=== PATIENT | female | born 1980 | race Caucasian/White ===

== ENCOUNTER 2017-02-18 16:16 | Emergency (ER) | payer OTHER ==
[2017-02-18 16:21] VITALS: BP 149/61; PULSE 102; TEMP 99.1; BMI 36.6
[2017-02-18] MEDS ORDERED: IBUPROFEN 600 MG TABLET (FP) PO ONE ×2 (17:31→17:35)
--- NOTE | 2017-02-18 17:41 | PDOC ---
History of Present Illness - General Chief Complaint: Ear Problem Stated Complaint: EAR PROBLEM Time Seen by Provider: 02/18/17 17:10 History Source: Patient Exam Limitations: No Limitations - History of Present Illness Initial Comments: 02/18/17 17:43 And sent pain, swelling, and exudate from left ear canal, and some mild pain to the right ear. States daughter is teething and also has an ear infection. 02/18/17 22:37 Timing/Duration: unsure Severity: mild Associated Symptoms: reports: fever/chills, malaise Past History - Travel Traveled outside of the country in the last 30 days: No Close contact w/someone who was outside of country & ill: No - Past Medical History Allergies/Adverse Reactions: Allergies Allergy/AdvReac Type Severity Reaction Status Date / Time aspirin Allergy Verified 02/18/17 16:21 Penicillins Allergy Verified 02/18/17 16:21 Home Medications: Ambulatory Orders Acetic Acid Hc [Vosol-Hc Ear Drops -] 3 drop Q6H #1 bottle 02/18/17 Asthma: Yes Cardiac Disorders: (CARDIOMYOPATHY) - Psycho/Social/Smoking Cessation Hx Suicidal Ideation: No Smoking History: Current every day smoker Number of Cigarettes Smoked Daily: 1 Information on smoking cessation initiated: No Hx Alcohol Use: No Drug/Substance Use Hx: No Substance Use Type: None Review of Systems - Review of Systems Able to Perform ROS?: Yes Is the patient limited Uzbek proficient: Yes Constitutional: Yes: Symptoms Reported, See HPI, Chills, Fever, Malaise HEENTM: Yes: Symptoms Reported, Ear Discharge (left ear) Respiratory: No: Symptoms reported Integumentary: No: Symptoms Reported Neurological: Yes: Symptoms reported All Other Systems: Reviewed and Negative *Physical Exam - Vital Signs Last Vital Signs Temp Pulse Resp BP Pulse Ox 99.1 F 102 H 18 149/61 98 02/18/17 16:19 02/18/17 16:19 02/18/17 16:19 02/18/17 16:19 02/18/17 16:19 - Physical Exam General Appearance: Yes: Nourished, Appropriately Dressed, Apparent Distress, Mild Distress HEENT: positive: DAVID, Pharynx Normal, Rhinorrhea, Sinus Tenderness. negative: Normal ENT Inspection, TMs Normal (erythematous canals, with white) Neck: positive: Supple, Lymphadenopathy (L). 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 We'll treat with acetic acid and hydrocortisone suspension *DC/Admit/Observation/Transfer Diagnosis at time of Disposition: Otitis externa Qualifiers: Otitis externa type: unspecified type Chronicity: acute Laterality: bilateral Qualified Code(s): H60.503 - Unspecified acute noninfective otitis externa, bilateral - Discharge Dispostion Disposition: HOME Condition at time of disposition: Stable Admit: No - Prescriptions Prescriptions: Acetic Acid Hc [Vosol-Hc Ear Drops -] 3 drop Q6H #1 bottle - Patient Instructions Printed Discharge Instructions: DI for Otitis Externa Additional Instructions: Rest, lots of fluids; water, teas, soups Hot wet soaks to ear/hot packs may help relieve some pain May use [id number] anesthetic drops to ears to help relieve some pain Avoid getting water in ear, may use alcohol drops to help dry up any water retained in ears Severe using earplugs when swimming to avoid any water retention Continue ibuprofen or Tylenol for pain and fevers VOSOL otic solution 3-5 drops 3 times a day for 5 days followup with private physician / ENT doctor in 2-3 days Return to emergency department or see private physician immediately for swelling , redness, from ears, or fevers, - Post Discharge Activity Work/School Note: Back to Work
== END 2017-02-18 17:45 | disposition home or self-care (01) ==
LOC: JERFT 16:16
DX: H60.503 Unspecified acute noninfective otitis externa, bilateral (principal)
CPT/HCPCS: 99281-25

== ENCOUNTER 2018-04-22 17:19 | Observation (INO) | payer OTHER ==
[2018-04-22 17:28] VITALS: BMI 32.5
--- NOTE | 2018-04-22 17:29 | PDOC ---
Rapid Medical Evaluation Chief Complaint: Edema Time Seen by Provider: 04/22/18 17:27 Medical Evaluation: Allergies Allergy/AdvReac Type Severity Reaction Status Date / Time aspirin Allergy Verified 02/18/17 16:21 Penicillins Allergy Verified 02/18/17 16:21 04/22/18 17:27 Pt c/o: left edema secondary dental abscess, drained abscess yesterday at [facility] dental clinic , on abx Pt on exam: + periorbital edema, no fever, hypertensive Pt ordered for labs, iv, facial ct Discharge Disposition - Diagnosis Dental abscess - Referrals - Patient Instructions - Post Discharge Activity
--- NOTE | 2018-04-22 17:50 | PDOC ---
History of Present Illness - History of Present Illness Initial Comments: Patient is a 38 year old female with PMHx of tubal ligation, endometriosis, spinal fusion, who presents with facial swelling and maxillary abscess s/p tooth removal. Patient states that she had one of her upper left molars removed on Friday in [place]. She developed an abscess and had it drained at [facility] yesterday. She was put on Clindamycin and given IV antibiotics. The facial swelling became progressively worse today. She came here because she was in the area. Past surgical Hx:spinal fusion Allergies: penicillin (anaphylaxis - throat swelling) , aspirin <Smiley Coates - Last Filed: 04/22/18 21:39> <Jung Orosco - Last Filed: 04/22/18 21:58> - General Chief Complaint: Edema Stated Complaint: SWOLLEN FACE, infection Time Seen by Provider: 04/22/18 17:27 Past History <Smiley Coates - Last Filed: 04/22/18 21:39> - Past Medical History Asthma: Yes Cardiac Disorders: (CARDIOMYOPATHY) COPD: No - Suicide/Smoking/Psychosocial Hx Smoking History: Never smoked Have you smoked in the past 12 months: No Number of Cigarettes Smoked Daily: 1 Information on smoking cessation initiated: No Hx Alcohol Use: No Drug/Substance Use Hx: No Substance Use Type: None <Jung Orosco - Last Filed: 04/22/18 21:58> - Past Medical History Allergies/Adverse Reactions: Allergies Allergy/AdvReac Type Severity Reaction Status Date / Time aspirin Allergy Verified 04/22/18 17:28 Penicillins Allergy Verified 04/22/18 17:28 Home Medications: Ambulatory Orders Clindamycin [Cleocin -] 300 mg PO TID 04/22/18 Review of Systems - Review of Systems Comments:: CONSTITUTIONAL: No fever, no chills, no fatigue EYES: No visual changes ENT: upper left maxillary abscess and pain. No ear pain, no sore throat CARDIOVASCULAR: No chest pain, no palpitations RESPIRATORY: No cough, no SOB GI: No abdominal pain, no nausea, no vomiting, no constipation, no diarrhea GENITOURINARY: No dysuria, no frequency, no hematuria MUSKULOSKELETAL: No back pain, no joint pain. SKIN: left-sided facial edema NEURO: No headache <Smiley Coates - Last Filed: 04/22/18 21:39> *Physical Exam - Vital Signs Last Vital Signs Temp Pulse Resp BP Pulse Ox 99.6 F 97 H 19 168/102 H 100 04/22/18 17:26 04/22/18 17:26 04/22/18 17:26 04/22/18 17:26 04/22/18 17:26 - Physical Exam Comments: CONSTITUTIONAL: Well-appearing; well-nourished. NECK: Supple; nontender; no cervical lymphadenopathy CARD: Normal S1, S2; no murmurs, rubs, or gallops RESP: Normal chest excursion with respiration; breath sounds clear and equal bilaterally; no wheezes, rhonchi, or rales ABD: Soft, non-distended; non-tender; no palpable organomegaly, no palpable hernias EXT: Normal ROM in all four extremities; non-tender to palpation; distal pulses intact SKIN: See note for face NEURO: No focal neurological deficiencies. Please refer to Dr's exam for face. <Smiley Coates - Last Filed: 04/22/18 21:39> - Vital Signs Last Vital Signs Temp Pulse Resp BP Pulse Ox 99.6 F 97 H 19 168/102 H 100 04/22/18 17:26 04/22/18 17:26 04/22/18 17:26 04/22/18 17:26 04/22/18 17:26 - Physical Exam Comments: 04/22/18 21:42 EXAMINATION EYES: PERRL; EOM intact; + left conjunctival injection; visual acuity is intact bilaterally; + significant periorbital edema on the left; ENMT: + Significant soft tissue swelling extending from the parotid gland up to the left temporal area without subcutaneous emphysema or bony tenderness; extraction of tooth #12 is noted without evidence of gingival induration or fluctuance; there is no trismus <Jung Orosco - Last Filed: 04/22/18 21:58> Heart Score/ECG Review - ECG Intrepretation Comment:: EKG interpretation: Taken at 22-Apr-2018 17:47:04 Vent. rate: 93 bpm Normal sinus rhythm Possible left atrial enlargement Nonspecific ST abnormality <Smiley Coates - Last Filed: 04/22/18 21:39> ED Treatment Course - LABORATORY CBC & Chemistry Diagram: 04/22/18 17:55 04/22/18 17:55 <Smiley Coates - Last Filed: 04/22/18 21:39> - LABORATORY CBC & Chemistry Diagram: 04/22/18 17:55 04/22/18 17:55 <Jung Orosco - Last Filed: 04/22/18 21:58> Medical Decision Making - Medical Decision Making 04/22/18 21:46 Patient is a 38-year-old female status post tooth extraction #12 due to an apical abscess who presents with an extensive soft tissue swelling of the face, left maxillary sinus and left periorbital and infraorbital structures. No drainable collection is identified on ct of face. There is no limitation in the extraocular movements. Will admit patients for IV antibiotics and evaluation for possible orbital involvement. <Jung Orosco - Last Filed: 04/22/18 21:58> *DC/Admit/Observation/Transfer - Attestations Scribe Attestion: 04/22/18 18:23 Documentation prepared by Smiley Coates, acting as medical office technology instructor for Jung Orosco MD. <Smiley Coates - Last Filed: 04/22/18 21:39> - Discharge Dispostion Decision to Admit order: Yes - Attestations Physician Attestion: 04/22/18 21:42 The documentation was prepared by the scribe under my direct supervision. I have reviewed the documentation which correctly represents the findings, medical decision-making and critical action taken by me. <Jung Orosco - Last Filed: 04/22/18 21:58> Diagnosis at time of Disposition: Facial cellulitis - Discharge Dispostion Condition at time of disposition: Fair
[2018-04-22] MEDS ORDERED: morphine SULFATE 4 MG/ML VIAL IVPUSH ONE (17:59)
[2018-04-22] MEDS ORDERED: CLINDAMYCIN 600MG PREMIX IVPB 600 MG/50 ML BAG IVPB ONE ×2 (18:21→18:23)
[2018-04-22] MEDS ORDERED: MORPHINE SULFATE 2 MG/ML VIAL ONE (18:23)
[2018-04-22 18:24] LABS: EOS % 0.9 % (0-4.5); HEMATOCRIT 38.8 % (32.4-45.2); HEMOGLOBIN 13.1 GM/dL (10.7-15.3); LYMPH % 24.5 % (8-40); MCHC 33.9 g/dl (32.0-36.0); MEAN CELL VOLUME 85.6 fl (80-96); MEAN PLT VOLUME 9.5 fl (7.5-11.1); MONO % 8.5 % (3.8-10.2); NEUT % 65.1 % (42.8-82.8); RBC 4.54 M/mm3 (3.60-5.2); RDW 17.2 % (11.6-15.6)
[2018-04-22 18:34] LABS: URINE APPEARANCE CLEAR; URINE BILIRUBIN NEGATIVE (<2.0 mg/dL); URINE COLOR LTYELLOW; URINE GLUCOSE (UA) NEGATIVE (NEGATIVE); URINE KETONE NEGATIVE (NEGATIVE); URINE LEUK ESTERASE NEGATIVE (NEGATIVE); URINE NITRITE NEGATIVE (NEGATIVE); URINE PROTEIN NEGATIVE (NEGATIVE); URINE UROBILINOGEN NEGATIVE mg/dL (0.2-1.0)
[2018-04-22 18:40] LABS: INR 1.23 (0.83-1.09); PROTHROMBIN TIME (PATIENT) 14.5 SEC (9.7-13.0)
[2018-04-22 19:13] LABS: PLATELET COUNT 299 K/MM3 (134-434); PLATELET ESTIMATE ADEQUATE
--- NOTE | 2018-04-22 22:32 | PN ---
Teaching Attending Note Name of Resident: Benita Cueavs ATTENDING PHYSICIAN STATEMENT I saw and evaluated the patient. I reviewed the resident's note and discussed the case with the resident. I agree with the resident's findings and plan as documented. SUBJECTIVE: Patient is a 38 year old woman with PMH of tubal ligation, penicillin allergy, endometriosis and spinal fusion who presents with facial swelling and maxillary abscess after tooth removal and abscess drainage. Patient states that she had one of her upper left molars removed on Friday in [place]. She developed an abscess and had it drained at [facility] yesterday. She was put on Clindamycin and given IV antibiotics. The facial swelling became progressively worse today. She came here because she was in the area. OBJECTIVE: Alert Vital Signs Period Temp Pulse Resp BP Sys/White Pulse Ox Last 24 Hr 99.6 F 97-104 18-19 138-168/86-102 100-100 HEENT: No Jaundice, periorbital left eye redness; no discharge, PERRLA, EOMI. Normocephalic, atraumatic. External ears are normal and hearing is grossly intact. No nasal discharge. Left facial edema; tender. No erythema in oral cavity and no obvious drainage from tooth extraction site. Neck: Supple, nontender. No palpable adenopathy or thyromegaly. No JVD Chest: Good effort. Clear to auscultation and percussion. Heart: Regular. No S3, rub or murmur Abdomen: Not distended, soft, nontender and no HSM. No rebound or guarding. Normoactive bowel sounds. Ext: Peripheral pulses intact. No leg edema. Skin: Warm and dry. No petechiae, rash or ecchymosis. Neuro: Alert. Oriented x3. CN 2-12 grossly intact. Sensation grossly intact in all four extremities and DTR are symmetric. Home Medications Medication Instructions Recorded Clindamycin [Cleocin -] 300 mg PO TID 04/22/18 Abnormal Lab Results 04/22/18 04/22/18 04/22/18 15:00 17:55 17:55 RDW 17.2 H PT with INR 14.50 H INR 1.23 H Ur Specific Marcus 1.009 L ASSESSMENT AND PLAN: 1. Periodontal abscess/cellulitis and left facial swelling - CT scan shows soft tissue edema with no obvious drainable fluid collection. Will treat with IV vancomycin, use warm compress for facial edema; consult ID, oral surgery and opthalmology. Monitor left periorbital erythema - no vision impairment at this time. 2. Obesity - Will provide patient all the necessary assistance, counseling and positive reinforcement to facilitate weight loss. Consult medical genetics director. 3. DVT prophylaxis - Lovenox 40 mg SQ q 24 hours. 4. Advance directives - Full code
[2018-04-22] MEDS ORDERED: VANCOMYCIN 1 GRAM (PRE-DOCKED) 1,000 MG/250 ML BAG IVPB ONE (23:44)
[2018-04-22] MEDS ORDERED: ACETAMINOPHEN 325 MG TABLET (FP) PO PRN (23:46)
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
[2018-04-23] MEDS ORDERED: VANCOMYCIN 1 GRAM (PRE-DOCKED) 1,000 MG/250 ML BAG IVPB ONE (00:17)
[2018-04-23 01:54] LABS: ALBUMIN 3.8 g/dl (3.4-5.0); ALK PHOS 98 U/L (45-117); ANION GAP 8 MMOL/L (8-16); BILIRUBIN,TOTAL 0.7 mg/dL (0.2-1); BLOOD UREA NITROGEN 8 mg/dL (7-18); CALCIUM 9.2 mg/dL (8.5-10.1); CHLORIDE 101 mmol/L (98-107); CO2 30 mmol/L (21-32); CREATININE 0.7 mg/dL (0.55-1.3); GLUCOSE,RANDOM 147 mg/dL (74-106); POTASSIUM 3.6 mmol/L (3.5-5.1); SGOT/AST 14 U/L (15-37); SGPT/ALT 18 U/L (13-61); SODIUM 139 mmol/L (136-145); TOT PROT 7.6 g/dl (6.4-8.2)
[2018-04-23 07:25] LABS: BASO % 0.7 % (0-2.0); EOS % 2.8 % (0-4.5); HEMATOCRIT 35.5 % (32.4-45.2); HEMOGLOBIN 11.7 GM/dL (10.7-15.3); LYMPH % 28.1 % (8-40); MCH 28.1 pg (25.7-33.7); MEAN PLT VOLUME 8.7 fl (7.5-11.1); MONO % 11.8 % (3.8-10.2); NEUT % 56.6 % (42.8-82.8); PLATELET COUNT 262 K/MM3 (134-434); RBC 4.17 M/mm3 (3.60-5.2); WHITE BLOOD COUNT 6.3 K/mm3 (4.0-10.0)
[2018-04-23 07:52] LABS: ALBUMIN 3.6 g/dl (3.4-5.0); ALK PHOS 92 U/L (45-117); ANION GAP 10 MMOL/L (8-16); BILIRUBIN,TOTAL 0.9 mg/dL (0.2-1); BLOOD UREA NITROGEN 8 mg/dL (7-18); CHLORIDE 102 mmol/L (98-107); CO2 27 mmol/L (21-32); CREATININE 0.5 mg/dL (0.55-1.3); GLUCOSE,RANDOM 88 mg/dL (74-106); POTASSIUM 3.8 mmol/L (3.5-5.1); SGOT/AST 11 U/L (15-37); SGPT/ALT 19 U/L (13-61); SODIUM 139 mmol/L (136-145)
[2018-04-23] MEDS ORDERED: CLINDAMYCIN 600MG PREMIX IVPB 600 MG/50 ML BAG IVPB SCH (10:00)
[2018-04-23] MEDS ORDERED: ENOXAPARIN NA (PORCINE) 40 MG/0.4 ML DISP.SYRIN SQ SCH (10:00)
--- NOTE | 2018-04-23 11:09 | EKG ---
Test Reason : Blood Pressure : / mmHG Vent. Rate : 093 BPM Atrial Rate : 093 BPM P-R Int : 128 ms QRS Dur : 080 ms QT Int : 322 ms P-R-T Axes : 060 014 -10 degrees QTc Int : 400 ms NORMAL SINUS RHYTHM POSSIBLE LEFT ATRIAL ENLARGEMENT NONSPECIFIC ST ABNORMALITY ABNORMAL ECG NO PREVIOUS ECGS AVAILABLE Confirmed by ABBI HUGHES MD ([id number]) on 04/23/2018 11:08:32 AM Referred By: Confirmed By:ABBI HUGHES MD
--- NOTE | 2018-04-23 14:03 | PN ---
Progress Note (short form) - Note Progress Note: ID Consult dictated Facial cellulitis secondary to dental abscess- improved Major PCN allergy OK for discharge on clindamycin 300mg po tid x 7d with probiotic Will follow up in office
--- NOTE | 2018-04-23 14:34 | CONS ---
INFECTIOUS DISEASE CONSULTATION DATE OF CONSULTATION: DATE OF DICTATION: 04/23/2018 The patient is a 38-year-old female who is evaluated for facial cellulitis. The patient reports a known history of dental abscess. She had developed worsening pain and swelling of her left cheek. She presented to her dentist on Friday, April 20, 2018, and an upper molar was extracted. She was told of a dental abscess which was not drained at that time. The patient developed worsening pain and swelling. She presented to [facility] on April 21, 2018, where a dental abscess was drained. Cultures were obtained and are pending. The Gram stain preliminarily shows gram-positive cocci in pairs and clusters and gram-negative bacilli. She presented to the hospital on April 22, 2018, with worsening pain and swelling of the left face. She was diagnosed with facial cellulitis. A CAT scan of the head and facial bones was performed and was negative for abscess. She was seen in consultation by Ophthalmology. No eye involvement was noted. Cultures were obtained. She was empirically treated with clindamycin. Patient reports marked improvement in her facial swelling on clindamycin. She has less pain, able to chew without pain. No breathing difficulties or change in her visual acuity. She is afebrile with a normal white blood cell count. PAST MEDICAL HISTORY: Positive for endometriosis. PAST SURGICAL HISTORY: Status post tubal ligation and spinal fusion. ALLERGIES: ASPIRIN and PENICILLIN. According to the chart, she has a history of anaphylaxis with PENICILLIN. Patient has no recall for this. She reports being told by her mother that she had a reaction to PENICILLIN as a child. MEDICATIONS: Include clindamycin and Tylenol. 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 She is a smoker. HIV status not known. SYSTEMS REVIEW: Neurologic: No loss of consciousness, seizure activity, focal weakness. Cardiac: Negative chest pain or palpitations. Respiratory: Negative cough or sputum production. Gastrointestinal: Negative vomiting or diarrhea. Genitourinary: Negative for urinary tract infection. LABORATORY DATA: White count 6.3, hematocrit 35.5, platelet count 262. Creatinine 0.5. Blood cultures are pending. PHYSICAL EXAMINATION: General: She is awake and alert. She is in no acute distress. Breathing is non-labored. Vital Signs: Temperature 98.2; blood pressure 136/86; pulse 88, regular; respirations 20 per minute. HEENT: Sclerae are anicteric. There is left facial edema, mostly over the left malar area and the left infraorbital area. There is no tenderness to palpation. No crepitus or fluctuance. Neck: Supple. No palpable adenopathy. Heart: Sounds S1, S2. Lungs: Clear. No rhonchi. No stridor or wheezing. Abdomen: Soft and nontender. Extremities: Negative for edema. IMPRESSION: 1. Facial cellulitis secondary to dental abscess, improved. 2. Status post drainage of dental abscess. 3. History of major PENICILLIN allergy. Patient's present condition compared to photos which the patient provided to me from earlier this week: There is marked improvement in the facial swelling. No abscess noted on CAT scan. Would continue clindamycin. May substitute clindamycin 300 mg p.o. 3 times a day for an additional 7 days with a probiotic. She will follow up with me in the office next week. I advised her to return to the emergency room should she develop any worsening swelling, erythema, or breathing difficulties. Thank you for the kind referral. CALLI MCGREGOR M.D. [id number]
[2018-04-23 15:10] VITALS: BP 136/91; PULSE 108; TEMP 98.5
--- NOTE | 2018-04-23 15:13 | DS ---
Physical Exam: SUBJECTIVE: Patient seen and examined. Pt. wants to go home, was refusing blood draws. Pt. denies fevers, diarrhea, runny nose, blurry vision. OBJECTIVE: Vital Signs Period Temp Pulse Resp BP Sys/White Pulse Ox Last 24 Hr 97.5 F-99.6 F 88-108 18-20 136-168/86-102 96-100 PHYSICAL EXAM GENERAL: The patient is awake, alert, and fully oriented, in no acute distress. EYES: PERRL, extraocular movements intact, sclera anicteric, swollen left face, mildly tendered to palpation around eye, conjunctiva clear. ENT: Ears normal, nares patent, , oropharynx clear without exudates and no erythema, scar from C-Spine present, moist mucous membranes. NECK: Trachea midline, full range of motion, supple. LUNGS: Breath sounds equal, clear to auscultation bilaterally, no wheezes, no crackles, no accessory muscle use. HEART: Tachycardic, regular rate and rhythm, S1, S2 without murmur ABDOMEN: Soft, nontender, nondistended, normoactive bowel sounds, no guarding, no rebound EXTREMITIES: 2+ dorsal pedal pulses, warm, well-perfused, moves all limbs spontaneously, no edema. NEUROLOGICAL: Cranial nerves II through XII grossly intact. Normal speech, gait not observed. PSYCH: Normal mood, normal affect. SKIN: Warm, dry, normal turgor, no rashes or lesions noted. LABS Laboratory Results - last 24 hr 04/22/18 04/22/18 04/22/18 15:00 17:55 17:55 WBC 10.0 RBC 4.54 Hgb 13.1 Hct 38.8 MCV 85.6 MCH 29.0 MCHC 33.9 RDW 17.2 H Plt Count 299 MPV 9.5 Absolute Neuts (auto) 6.5 Neutrophils % 65.1 Lymphocytes % 24.5 Monocytes % 8.5 Eosinophils % 0.9 Basophils % 1.0 Nucleated RBC % 0 Platelet Estimate Adequate Platelet Comment Giant platelets PT with INR 14.50 H INR 1.23 H Sodium Potassium Chloride Carbon Dioxide Anion Gap BUN Creatinine Creat Clearance w eGFR Random Glucose Lactic Acid Calcium Total Bilirubin AST ALT Alkaline Phosphatase Troponin I Total Protein Albumin Urine Color Ltyellow Urine Appearance Clear Urine pH 7.0 Ur Specific [place] 1.009 L Urine Protein Negative Urine Glucose (UA) Negative Urine Ketones Negative Urine Blood Negative Urine Nitrite Negative Urine Bilirubin Negative Urine Urobilinogen Negative Ur Leukocyte Esterase Negative Blood Type Antibody Screen 04/22/18 04/22/18 04/22/18 17:55 17:55 17:55 WBC RBC Hgb Hct MCV MCH MCHC RDW Plt Count MPV Absolute Neuts (auto) Neutrophils % Lymphocytes % Monocytes % Eosinophils % Basophils % Nucleated RBC % Platelet Estimate Platelet Comment PT with INR INR Sodium Cancelled Potassium Cancelled Chloride Cancelled Carbon Dioxide Cancelled Anion Gap Cancelled BUN Cancelled Creatinine Cancelled Creat Clearance w eGFR Cancelled Random Glucose Cancelled Lactic Acid 1.3 Calcium Cancelled Total Bilirubin Cancelled AST Cancelled ALT Cancelled Alkaline Phosphatase Cancelled Troponin I Total Protein Cancelled Albumin Cancelled Urine Color Urine Appearance Urine pH Ur Specific [place] Urine Protein Urine Glucose (UA) Urine Ketones Urine Blood Urine Nitrite Urine Bilirubin Urine Urobilinogen Ur Leukocyte Esterase Blood Type A POSITIVE Antibody Screen Negative 04/22/18 04/22/18 04/23/18 17:55 20:40 01:15 WBC RBC Hgb Hct MCV MCH MCHC RDW Plt Count MPV Absolute Neuts (auto) Neutrophils % Lymphocytes % Monocytes % Eosinophils % Basophils % Nucleated RBC % Platelet Estimate Platelet Comment PT with INR INR Sodium 139 Potassium 3.6 Chloride 101 Carbon Dioxide 30 Anion Gap 8 BUN 8 Creatinine 0.7 Creat Clearance w eGFR > 60 Random Glucose 147 H Lactic Acid 0.7 Calcium 9.2 Total Bilirubin 0.7 AST 14 L ALT 18 Alkaline Phosphatase 98 Troponin I Cancelled Total Protein 7.6 Albumin 3.8 Urine Color Urine Appearance Urine pH Ur Specific [place] Urine Protein Urine Glucose (UA) Urine Ketones Urine Blood Urine Nitrite Urine Bilirubin Urine Urobilinogen Ur Leukocyte Esterase Blood Type Antibody Screen 04/23/18 04/23/18 06:25 06:25 WBC 6.3 RBC 4.17 Hgb 11.7 Hct 35.5 MCV 85.0 MCH 28.1 MCHC 33.0 RDW 17.0 H Plt Count 262 MPV 8.7 Absolute Neuts (auto) 3.6 Neutrophils % 56.6 Lymphocytes % 28.1 Monocytes % 11.8 H Eosinophils % 2.8 D Basophils % 0.7 Nucleated RBC % 0 Platelet Estimate Platelet Comment PT with INR INR Sodium 139 Potassium 3.8 Chloride 102 Carbon Dioxide 27 Anion Gap 10 BUN 8 Creatinine 0.5 L Creat Clearance w eGFR > 60 Random Glucose 88 Lactic Acid Calcium 9.0 Total Bilirubin 0.9 AST 11 L ALT 19 Alkaline Phosphatase 92 Troponin I Total Protein 7.0 Albumin 3.6 Urine Color Urine Appearance Urine pH Ur Specific [place] Urine Protein Urine Glucose (UA) Urine Ketones Urine Blood Urine Nitrite Urine Bilirubin Urine Urobilinogen Ur Leukocyte Esterase Blood Type Antibody Screen HOSPITAL COURSE: Date of Admission:04/22/18 Date of Discharge: 04/23/18 Pt. admitted for facial swelling after having tooth removed. Pt. received 2 doses of IV Clindamycin and 1 dose of Vancomycin. Facial CT was negative for abscess, no observable drainable fluids, focal edema around left maxillary sinus , incidental small right maxillary sinus. ENT was called at [facility] for follow up on culture growths which were growing gram + cocci in pairs and clusters and gram negative bacilli. ID consult recommended seven day course of Clindamycin 300mg TID. Hospital course was discussed with and agreed upon with Pt. and medical staff. Minutes to complete discharge: 32 Discharge Summary Reason For Visit: CELLULITIS OF FACE Current Active Problems Facial cellulitis (Acute) Condition: Fair - Instructions Diet, Activity, Other Instructions: You came in with left-sided facial swelling. We are prescribing you Clindamycin 300mg THREE times a day ( Every 8 hours: 06: 00AM, 02:00PM, 10:00PM) Please take as prescribed. Please follow up with your primary care physician in 1 week. Please return to the ED if you are having fever, chills, discharge from the area , changes in vision, headache, numbness of the face, or increased pain or swelling of the face. Disposition: HOME - Home Medications Comprehensive Discharge Medication List: Ambulatory Orders Clindamycin [Cleocin -] 300 mg PO TID #21 capsule 04/23/18 This patient is new to me today: Yes Date on this admission: 04/22/18 Emergency Visit: Yes ED Registration Date: 04/22/18 Care time: The patient presented to the Emergency Department on the above date and was hospitalized for further evaluation of their emergent condition. Critical Care patient: No - Discharge Referral Referred to [facility] Med P.C.: No
--- NOTE | 2018-04-23 16:00 | PN ---
Teaching Attending Note Name of Resident: Daniel Castro ATTENDING PHYSICIAN STATEMENT I saw and evaluated the patient. I reviewed the resident's note and discussed the case with the resident. I agree with the resident's findings and plan as documented. SUBJECTIVE: Patient wants to go home. OBJECTIVE: Vital Signs Temperature 98.5 F 04/23/18 15:04 Pulse Rate 108 H 04/23/18 15:04 Respiratory Rate 20 04/23/18 15:04 Blood Pressure 136/91 04/23/18 15:04 O2 Sat by Pulse Oximetry (%) 98 04/23/18 03:40 GENERAL: The patient is awake, alert, and fully oriented, in no acute distress. HEAD: Normal with no signs of trauma. EYES: PERRL, extraocular movements intact, sclera anicteric, conjunctiva clear. ENT: Ears normal, oropharynx clear without exudates, moist mucous membranes. NECK: Trachea midline, full range of motion, supple. LUNGS: Breath sounds equal, clear to auscultation bilaterally, no wheezes, no crackles, no accessory muscle use. HEART: Regular rate and rhythm, S1, S2 without murmur, rub or gallop. ABDOMEN: Soft, nontender, nondistended, normoactive bowel sounds, no guarding, no rebound, no hepatosplenomegaly, no masses. EXTREMITIES: 2+ pulses, warm, well-perfused, no edema. NEUROLOGICAL: Cranial nerves II through XII grossly intact. Normal speech, gait is stable PSYCH: Normal mood, normal affect. SKIN: Warm, dry, normal turgor, no rashes or lesions noted. CBCD WBC 6.3 K/mm3 (4.0-10.0) 04/23/18 06:25 RBC 4.17 M/mm3 (3.60-5.2) 04/23/18 06:25 Hgb 11.7 GM/dL (10.7-15.3) 04/23/18 06:25 Hct 35.5 % (32.4-45.2) 04/23/18 06:25 MCV 85.0 fl (80-96) 04/23/18 06:25 MCHC 33.0 g/dl (32.0-36.0) 04/23/18 06:25 RDW 17.0 % (11.6-15.6) H 04/23/18 06:25 Plt Count 262 K/MM3 (134-434) 04/23/18 06:25 MPV 8.7 fl (7.5-11.1) 04/23/18 06:25 CMP Sodium 139 mmol/L (136-145) 04/23/18 06:25 Potassium 3.8 mmol/L (3.5-5.1) 04/23/18 06:25 Chloride 102 mmol/L (98-107) 04/23/18 06:25 Carbon Dioxide 27 mmol/L (21-32) 04/23/18 06:25 Anion Gap 10 MMOL/L (8-16) 04/23/18 06:25 BUN 8 mg/dL (7-18) 04/23/18 06:25 Creatinine 0.5 mg/dL (0.55-1.3) L 04/23/18 06:25 Creat Clearance w eGFR > 60 (>60) 04/23/18 06:25 Random Glucose 88 mg/dL (74-106) 04/23/18 06:25 Calcium 9.0 mg/dL (8.5-10.1) 04/23/18 06:25 Total Bilirubin 0.9 mg/dL (0.2-1) 04/23/18 06:25 AST 11 U/L (15-37) L 04/23/18 06:25 ALT 19 U/L (13-61) 04/23/18 06:25 Alkaline Phosphatase 92 U/L (45-117) 04/23/18 06:25 Total Protein 7.0 g/dl (6.4-8.2) 04/23/18 06:25 Albumin 3.6 g/dl (3.4-5.0) 04/23/18 06:25 CARDIAC ENZYMES Troponin I Cancelled 04/22/18 17:55 Home Medications Medication Instructions Recorded Clindamycin [Cleocin -] 300 mg PO TID #21 capsule 04/23/18 ASSESSMENT AND PLAN: Patient is 38 y/o female with the past medical history of endometriosis on luperon injections and asthma who presents with left sided facial swelling. # Acute facial cellulitis s/p abscess drainage at the ENT office, as per ID to discharge the patient home on Clindamycin given Vancomycin and Clindamycin in ED. as per ID ; OK to discharge on clindamycin 300mg po tid x 7d with probiotic #asthma: stable discharge the patient home.
== END 2018-04-23 15:34 | disposition home or self-care (01) ==
LOC: JER 17:19 → JERBED 21:58 → INTOOBSV 21:58 → J5S 04-23 01:40
PROVIDERS: ADMIT Internal Medicine; ATTEND Internal Medicine
PROC: 3E03329 Introduction of Other Anti-infective into Peripheral Vein, Percutaneous Approach (ICD-10-PCS; principal; 2018-04-22)
PROC: 3E033NZ Introduction of Analgesics, Hypnotics, Sedatives into Peripheral Vein, Percutaneous Approach (ICD-10-PCS; 2018-04-22)
DX: L03.211 Cellulitis of face (principal); E66.9 Obesity, unspecified; Z68.32 Body mass index [BMI] 32.0-32.9, adult; Z88.0 Allergy status to penicillin; Z98.818 Other dental procedure status
CPT/HCPCS: 36415; 70486-TC; 80053; 81003; 83605; 85025; 85610; 86850; 86900; 86901; 87040; 87086; 93005; 93010; 96365; 96375; 96376; 99285-25; G0378